=== PATIENT | male | born 1965 | race Caucasian/White ===

== ENCOUNTER 2021-03-13 16:09 | Inpatient (IN) | payer OTHER ==
[~2021-03-13] VITALS: Ht 180.3 cm; Wt 106.0 kg
[2021-03-13 18:43] LABS: HEMOGLOBIN 12.5 gm/dl (14.0-17.5); RED BLOOD COUNT 4.07 M/UL (4.20-5.50); WHITE BLOOD COUNT 11.6 K/UL (4.5-11.0)
[2021-03-13 19:04] LABS: BUN/CREATININE RATIO 25 (0-10)
[2021-03-14 07:08] LABS: HEMOGLOBIN 12.5 gm/dl (14.0-17.5); RED BLOOD COUNT 4.17 M/UL (4.20-5.50); WHITE BLOOD COUNT 10.5 K/UL (4.5-11.0)
[2021-03-14 07:35] LABS: BUN/CREATININE RATIO 29 (0-10)
[2021-03-15 04:54] LABS: BUN/CREATININE RATIO 20 (0-10)
[2021-03-15 06:44] LABS: HEMOGLOBIN 12.5 gm/dl (14.0-17.5); RED BLOOD COUNT 4.24 M/UL (4.20-5.50); WHITE BLOOD COUNT 11.1 K/UL (4.5-11.0)
--- NOTE | 2021-03-15 21:36 | NUR ---
2119: MD AT BEDSIDE TO ASSESS PATIENT CONDITION 2123: 20MG OF ETOMIDATE, 100MG OF SUCC 2124; 100MG OF SUCC ADMINISTERED 2131: 50MCG OF DIPRIVAN ADMINISTERED 2136: 50MCG OF DIPRIVAN ADMINISTERED 2137: 50MG OF LEOBARDO AND 20MG OF ETOMIDATE ADMINISTERED 2138: PATIENT INTUBATED WITH 7.5 ET TUBE, 25 AT THE LIP; VENT SETTINGS AC 24, TV 450, FIO2 100%, PEEP 14 2147: OGT PLACED
[2021-03-16 04:49] LABS: HEMOGLOBIN 13.4 gm/dl (14.0-17.5); RED BLOOD COUNT 4.44 M/UL (4.20-5.50); WHITE BLOOD COUNT 13.7 K/UL (4.5-11.0)
[2021-03-16 05:15] LABS: BUN/CREATININE RATIO 23 (0-10)
[2021-03-17 04:10] LABS: HEMOGLOBIN 12.8 gm/dl (14.0-17.5); RED BLOOD COUNT 4.2 M/UL (4.20-5.50); WHITE BLOOD COUNT 11.1 K/UL (4.5-11.0)
[2021-03-18 05:13] LABS: HEMOGLOBIN 11.8 gm/dl (14.0-17.5); RED BLOOD COUNT 3.88 M/UL (4.20-5.50)
[2021-03-18 05:28] LABS: WHITE BLOOD COUNT 17.8 K/UL (4.5-11.0)
[2021-03-19 06:55] LABS: HEMOGLOBIN 11.1 gm/dl (14.0-17.5); RED BLOOD COUNT 3.67 M/UL (4.20-5.50); WHITE BLOOD COUNT 18.6 K/UL (4.5-11.0)
[2021-03-19 20:56] LABS: ACINETOBACTER BAUMANNII Not Detected (Negative); CANDIDA ALBICANS Not Detected (Negative); CANDIDA KRUSEI Not Detected (Negative); CANDIDA TROPICALIS Not Detected (Negative); ENTEROCOCCUS Not Detected (Negative); ESCHERICHIA COLI Not Detected (Negative); HAEMOPHILUS INFLUENZAE Not Detected (Negative); KLEBSIELLA OXYTOCA Not Detected (Negative); KLEBSIELLA PNEUMONIAE Not Detected (Negative); KPC-CARBAPENEM-RESISTANCE GENE Not Detected (Negative); PROTEUS Not Detected (Negative); PSEUDOMONAS AERUGINOSA Not Detected (Negative); SERRATIA MARCESANS Not Detected (Negative); STREP AGALACTIAE (GROUP B) Not Detected (Negative); STREP PYOGENES (GROUP A) Not Detected (Negative); STREPTOCOCCUS Not Detected (Negative); vanA/B (VANCOMYCIN RESIST GENE Not Detected (Negative)
[2021-03-19 22:13] LABS: mecA (METHICILLIN RESIST GENE DETECTED (Negative)
[2021-03-19 22:14] LABS: STAPHYLOCOCCUS DETECTED (Negative); STAPHYLOCOCCUS AUREUS DETECTED (Negative)
[2021-03-20 05:21] LABS: HEMOGLOBIN 10.8 gm/dl (14.0-17.5); RED BLOOD COUNT 3.67 M/UL (4.20-5.50); WHITE BLOOD COUNT 16.3 K/UL (4.5-11.0)
[2021-03-21 05:14] LABS: HEMOGLOBIN 11.1 gm/dl (14.0-17.5); RED BLOOD COUNT 3.74 M/UL (4.20-5.50); WHITE BLOOD COUNT 15.1 K/UL (4.5-11.0)
[2021-03-22 03:56] LABS: HEMOGLOBIN 12.1 gm/dl (14.0-17.5); RED BLOOD COUNT 4.01 M/UL (4.20-5.50); WHITE BLOOD COUNT 15.1 K/UL (4.5-11.0)
[2021-03-25 11:35] LABS: HEMOGLOBIN 13.9 gm/dl (14.0-17.5); RED BLOOD COUNT 4.59 M/UL (4.20-5.50); WHITE BLOOD COUNT 19.8 K/UL (4.5-11.0)
[2021-03-26 05:41] LABS: HEMOGLOBIN 13.5 gm/dl (14.0-17.5); RED BLOOD COUNT 4.47 M/UL (4.20-5.50); WHITE BLOOD COUNT 20.6 K/UL (4.5-11.0)
[2021-03-27 04:07] LABS: HEMOGLOBIN 14.2 gm/dl (14.0-17.5); RED BLOOD COUNT 4.89 M/UL (4.20-5.50); WHITE BLOOD COUNT 21.4 K/UL (4.5-11.0)
[2021-03-28 06:08] LABS: HEMOGLOBIN 14.5 gm/dl (14.0-17.5); RED BLOOD COUNT 4.9 M/UL (4.20-5.50); WHITE BLOOD COUNT 24.9 K/UL (4.5-11.0)
[2021-03-29 03:32] LABS: HEMOGLOBIN 13.1 gm/dl (14.0-17.5); RED BLOOD COUNT 4.46 M/UL (4.20-5.50); WHITE BLOOD COUNT 21.1 K/UL (4.5-11.0)
[2021-03-30 03:20] LABS: HEMOGLOBIN 12.9 gm/dl (14.0-17.5); RED BLOOD COUNT 4.48 M/UL (4.20-5.50); WHITE BLOOD COUNT 26.7 K/UL (4.5-11.0)
[2021-03-31 03:43] LABS: HEMOGLOBIN 12.7 gm/dl (14.0-17.5); RED BLOOD COUNT 4.2 M/UL (4.20-5.50); WHITE BLOOD COUNT 25.3 K/UL (4.5-11.0)
[2021-03-31] MEDS ORDERED: IPRAT-ALBUT 0.5-3 ML NEB (15:28)
[2021-03-31] MEDS ORDERED: ACETAMINOPHEN325 MG PO (15:28)
[2021-03-31] MEDS ORDERED: PROTONIX 40 MG40 M1 PO (15:28)
[2021-03-31] MEDS ORDERED: LANTUS INS100 UTS/M1 SC (15:28)
[2021-03-31] MEDS ORDERED: HUMALOG 10100 UNITS/ SC (15:28)
[2021-03-31] MEDS ORDERED: POLYETHYLENE GL17 GM GT (15:28)
[2021-03-31] MEDS ORDERED: VITAMIN C 500500 MG PO (15:28)
[2021-03-31] MEDS ORDERED: MEDROL DOSEPAK 24 MG PO (15:28)
[2021-04-01 03:38] LABS: HEMOGLOBIN 12.2 gm/dl (14.0-17.5); RED BLOOD COUNT 4.03 M/UL (4.20-5.50); WHITE BLOOD COUNT 21.8 K/UL (4.5-11.0)
[2021-04-01 04:09] LABS: BUN/CREATININE RATIO 53 (0-10)
[2021-04-02 03:26] LABS: HEMOGLOBIN 12.2 gm/dl (14.0-17.5); RED BLOOD COUNT 4.03 M/UL (4.20-5.50); WHITE BLOOD COUNT 20.4 K/UL (4.5-11.0)
[2021-04-03 03:36] LABS: HEMOGLOBIN 11.5 gm/dl (14.0-17.5); RED BLOOD COUNT 3.91 M/UL (4.20-5.50); WHITE BLOOD COUNT 25.3 K/UL (4.5-11.0)
--- NOTE | 2021-04-03 11:46 | NUR ---
CHEST TUBE PLACED EARLIER TO RIGHT LATERAL SIDE PER DR FRANCIS. CHEST XRAY AFTER 1 HOUR SHOWS THAT LUNG HAS NOT REINFLATED. MD AWARE. DR CLEMENTE ON FLOOR AND PLACED 28FR. TROCAR TO RIGHT LATERAL CHEST WALL. TUBE PLACED TO WATER SEAL. REPEAT CHEST XRAY ORDERED.
[2021-04-04 04:23] LABS: HEMOGLOBIN 11.5 gm/dl (14.0-17.5); RED BLOOD COUNT 3.8 M/UL (4.20-5.50); WHITE BLOOD COUNT 18.5 K/UL (4.5-11.0)
[2021-04-05 04:34] LABS: RED BLOOD COUNT 3.69 M/UL (4.20-5.50); WHITE BLOOD COUNT 19.1 K/UL (4.5-11.0)
[2021-04-05 11:02] LABS: URINE CREATININE 50.5 mg/dL
[2021-04-06 05:14] LABS: RED BLOOD COUNT 3.04 M/UL (4.20-5.50); WHITE BLOOD COUNT 12.4 K/UL (4.5-11.0)
[2021-04-06 05:27] LABS: BUN/CREATININE RATIO 36 (0-10)
[2021-04-07 05:39] LABS: HEMOGLOBIN 9.2 gm/dl (14.0-17.5); RED BLOOD COUNT 3.06 M/UL (4.20-5.50); WHITE BLOOD COUNT 10.5 K/UL (4.5-11.0)
[2021-04-07 06:18] LABS: BUN/CREATININE RATIO 34 (0-10)
[2021-04-08 07:32] LABS: HEMOGLOBIN 8.8 gm/dl (14.0-17.5); RED BLOOD COUNT 3.06 M/UL (4.20-5.50)
[2021-04-08 09:20] LABS: BUN/CREATININE RATIO 33 (0-10)
[2021-04-09 06:58] LABS: HEMOGLOBIN 8.7 gm/dl (14.0-17.5); RED BLOOD COUNT 2.96 M/UL (4.20-5.50); WHITE BLOOD COUNT 8.8 K/UL (4.5-11.0)
[2021-04-09 07:59] LABS: BUN/CREATININE RATIO 32 (0-10)
[2021-04-10 06:56] LABS: HEMOGLOBIN 8.2 gm/dl (14.0-17.5); RED BLOOD COUNT 2.78 M/UL (4.20-5.50); WHITE BLOOD COUNT 8.9 K/UL (4.5-11.0)
[2021-04-10] MEDS ORDERED: LOPRESSOR 25 MG25 MG PO (13:43)
[2021-04-10] MEDS ORDERED: NYSTOP60 GM TOP (13:43)
== END 2021-04-10 20:02 | DRG 870 ==
LOC: PROG CARE 17:49 → CCU 17:49 → PROG CARE 03-26 14:33 → CCU 04-03 07:28 → MED SURG 4 04-07 20:16
PROVIDERS: Internal Medicine; Internal Medicine Nephrology; Internal Medicine Pulmonary Disease; Physician Assistant Medical; ADMIT Internal Medicine
PROC: 5A1D70Z Performance of Urinary Filtration, Intermittent, Less than 6 Hours Per Day (ICD-10-PCS; 2021-03-13)
PROC: 8E0ZXY6 Isolation (ICD-10-PCS; 2021-03-13)
PROC: XW033E5 Introduction of Remdesivir Anti-infective into Peripheral Vein, Percutaneous Approach, New Technology Group 5 (ICD-10-PCS; 2021-03-14)
PROC: 3E0333Z Introduction of Anti-inflammatory into Peripheral Vein, Percutaneous Approach (ICD-10-PCS; 2021-03-14)
PROC: 5A0945A Assistance with Respiratory Ventilation, 24-96 Consecutive Hours, High Flow/Velocity Cannula (ICD-10-PCS; 2021-03-14)
PROC: 3E033XZ Introduction of Vasopressor into Peripheral Vein, Percutaneous Approach (ICD-10-PCS; 2021-03-15)
PROC: 0DH67UZ Insertion of Feeding Device into Stomach, Via Natural or Artificial Opening (ICD-10-PCS; 2021-03-15)
PROC: 05HM33Z Insertion of Infusion Device into Right Internal Jugular Vein, Percutaneous Approach (ICD-10-PCS; 2021-03-15)
PROC: B543ZZA Ultrasonography of Right Jugular Veins, Guidance (ICD-10-PCS; 2021-03-15)
PROC: XW033H5 Introduction of Tocilizumab into Peripheral Vein, Percutaneous Approach, New Technology Group 5 (ICD-10-PCS; 2021-03-15)
PROC: 5A1955Z Respiratory Ventilation, Greater than 96 Consecutive Hours (ICD-10-PCS; principal; 2021-03-16)
PROC: 0BH18EZ Insertion of Endotracheal Airway into Trachea, Via Natural or Artificial Opening Endoscopic (ICD-10-PCS; 2021-03-16)
PROC: 5A09557 Assistance with Respiratory Ventilation, Greater than 96 Consecutive Hours, Continuous Positive Airway Pressure (ICD-10-PCS; 2021-03-21)
PROC: B24BZZZ Ultrasonography of Heart with Aorta (ICD-10-PCS; 2021-03-21)
PROC: 0W9900Z Drainage of Right Pleural Cavity with Drainage Device, Open Approach (ICD-10-PCS; 2021-04-03)
DX: A41.02 Sepsis due to Methicillin resistant Staphylococcus aureus (principal); E11.10 Type 2 diabetes mellitus with ketoacidosis without coma; U07.1 COVID-19; J12.82 Pneumonia due to coronavirus disease 2019; R65.21 Severe sepsis with septic shock; J80 Acute respiratory distress syndrome; J15.212 Pneumonia due to Methicillin resistant Staphylococcus aureus; N17.0 Acute kidney failure with tubular necrosis; I82.433 Acute embolism and thrombosis of popliteal vein, bilateral; J98.11 Atelectasis; E87.0 Hyperosmolality and hypernatremia; J94.2 Hemothorax; Z23 Encounter for immunization; L89.156 Pressure-induced deep tissue damage of sacral region; K59.00 Constipation, unspecified; R19.7 Diarrhea, unspecified; E87.5 Hyperkalemia; I07.1 Rheumatic tricuspid insufficiency; E86.0 Dehydration; E11.649 Type 2 diabetes mellitus with hypoglycemia without coma; R13.10 Dysphagia, unspecified; D69.6 Thrombocytopenia, unspecified; E66.9 Obesity, unspecified; E11.65 Type 2 diabetes mellitus with hyperglycemia; I10 Essential (primary) hypertension; Z82.49 Family history of ischemic heart disease and other diseases of the circulatory system; Z83.3 Family history of diabetes mellitus; Z88.8 Allergy status to other drugs, medicaments and biological substances; Z79.84 Long term (current) use of oral hypoglycemic drugs; Z91.14 Patient's other noncompliance with medication regimen; Z79.4 Long term (current) use of insulin; Z68.31 Body mass index [BMI] 31.0-31.9, adult
CPT/HCPCS: 31500; 36415; 36600; 71045; 71046; 74018; 74230; 80048; 80053; 80202; 81001; 82043; 82570; 82803; 82962; 83036; 83605; 83735; 83880; 84100; 84439; 84443; 84550; 85007; 85025; 85027; 85379; 85610; 86140; 87040; 87070; 87077; 87081; 87150; 87186; 87205; 92526; 92610; 92611-GN; 93970; 94002; 94003; 94640; 94660; 94667; 94668; 94760; 97110; 97110-GP-CQ; 97162; 97164; 97167; 97168; 97530; 97530-GP-CQ; A6212; C9113; J0171; J0330; J0456; J0696; J1100; J1335; J1650; J2185; J2270; J2704; J3010; J3370; J7030; J7040; J7050; J7070; Q0249

== ENCOUNTER → 2022-01-12 | Outpatient (CLI) | payer OTHER ==
[~2022-01-12] MED LIST: ACETAMINOPHEN325 MG PO; HUMALOG 10100 UNITS/ SC; INSULIN LI100 UNIT/2 INJ; IPRAT-ALBUT 0.5-3 ML NEB; LANTUS INS100 UTS/M1 SC; LOPRESSOR 25 MG25 MG PO; MEDROL DOSEPAK 24 MG PO; NYSTOP60 GM TOP; OMNICEF 300 MG300 MG PO; POLYETHYLENE GL17 GM GT; PROAIR HFA8.5 GM INH; PROTONIX 40 MG40 M1 PO; VITAMIN C 500500 MG PO
== END ==
LOC: RAD 14:33
DX: J98.4 Other disorders of lung (principal)
CPT/HCPCS: 71046

== ENCOUNTER → 2022-02-20 | Outpatient (CLI) | payer OTHER | LOC: KOH-I 12:20 | DX: Z53.8 Procedure and treatment not carried out for other reasons (principal) | CPT/HCPCS: 71250 ==